=== PATIENT | male | born 2000 | race Caucasian/White ===

== ENCOUNTER 2018-03-07 17:17 | Emergency (ER) | payer OTHER ==
--- NOTE | 2018-03-07 17:36 | EDPHY ---
H & P Stated Complaint: L SIDED CP ALL DAY/DENIES DRUG USE - Personal History Current Tetanus Diphtheria and Acellular Pertussis (TDAP): Yes - Medical/Surgical History Hx Asthma: No Hx Chronic Respiratory Disease: No Hx Diabetes: No Hx Cardiac Disease: No Hx Renal Disease: No Hx Cirrhosis: No Hx Alcoholism: No Hx HIV/AIDS: No Hx Splenectomy or Spleen Trauma: No Other PMH: EOE - Social History Smoking Status: Never smoked Time Seen by Provider: 03/07/18 17:25 HPI/ROS: CHIEF COMPLAINT: Left-sided chest pain since waking this morning HISTORY OF PRESENT ILLNESS: 17-year-old male generally healthy with complaining of left-sided chest pain present since waking this morning. No trauma history. No alcohol or drug use. No cocaine use. Pain is described as nonpleuritic, nonradiating. Not reproducible with palpation. No syncope or near syncope. No diaphoresis. No nausea. PRIMARY CARE PROVIDER: REVIEW OF SYSTEMS: 10 systems reviewed and negative with the exception of the elements mentioned in the history of present illness PAST MEDICAL & SURGICAL HISTORY: eosinophilic esophagitis history, arm daily PPI therapy. No connective tissue disorder history. SOCIAL HISTORY: Positive for alcohol use last evening. Nonsmoker. No cocaine use. No drug use. FAMILY HISTORY: No family history of premature coronary artery disease, sudden unexplained or coagulopathic disorder PHYSICAL EXAM (Prior to examination, patient consented to physical exam, hands were washed and my usual and customary physical exam procedures followed) 1) GENERAL: Well-developed, well-nourished, alert and oriented. Appears to be in no acute distress. 2) HEAD: Normocephalic, atraumatic 3) HEENT: Pupils equal, round, reactive to light bilaterally. Sclera anicteric. Nasopharynx, oropharynx, clear, no lesions. Moist Mucous membranes. 4) NECK: Full range of motion, no meningeal signs. No carotid bruit. No jvd 5) LUNGS: Clear auscultation bilaterally, no wheezes, no rhonchi, no retractions. 6) HEART: Regular rate and rhythm, no murmur, no heave, no gallop. 7) ABDOMEN: No guarding, no rebound, no focal tenderness, negative McBurney's, negative Lopes's, negative Rovsing's, negative peritoneal sign, 8) MUSCULOSKELETAL: Moving all extremities, no focal areas of tenderness, no obvious trauma. No peripheral edema or discoloration. Negative Homans no palpable cord 9) BACK: No CVA tenderness, no midline vertebral tenderness, no fluctuance, no step-off, no obvious trauma, no visual or palpable abnormality. 10) SKIN: No rash, no petechiae. 11) Psychiatric: Patient is oriented X 3, there is no agitation. DIFFERENTIAL DIAGNOSIS: In no particular order, including but not limited to myocardial ischemia, esophageal/gi pathology, pulmonary embolus, chest wall pain , pleural inflammation and pulmonary infectious causes. (Jeff Lezama) Constitutional: Initial Vital Signs Temperature (C) 36.6 C 03/07/18 17:21 Heart Rate 81 03/07/18 17:21 Respiratory Rate 18 03/07/18 17:21 Blood Pressure 146/98 H 03/07/18 17:21 O2 Sat (%) 96 03/07/18 17:21 O2 Delivery Mode Room Air Allergies/Adverse Reactions: No Known Allergies Allergy (Unverified 03/07/18 17:19) Home Medications: Medication Instructions Recorded MINOCYCLINE HCL 03/07/18 Ranitidine HCl [Zantac] 150 mg PO BID #30 tablet 03/07/18 Medical Decision Making - Diagnostics Imaging Results: Imaging Impressions Chest X-Ray 03/07/18 17:27 IMPRESSION: Normal chest x-ray. Images reviewed myself (Jeff Lezama) ED Course/Re-evaluation: Re-evaluation with serial exams. Discussed his negative chest x-ray showing no pneumothorax or hemothorax no infiltrate. Doubt pulmonary embolus, negative perc score. Low cardiac/NM risk. We discussed his negative chest x-ray and his EKG. Given his history of eosinophilic esophagitis and positive alcohol use last evening , we discussed possibility of his possible esophageal/GI pathology. Given GI cocktail with re-evaluation, notes improvement symptoms. At this time I think that other pathologies such as PE, aortic dissection less than likely this patient. I do not think that further imaging indicated at this time. However should he develops new or worsening symptoms recommend he return to the ER immediately for re-evaluation. He feels comfortable with this plan. All questions and concerns addressed by myself. My usual and customary discharge precautions and instructions provided. I saw this patient independently based on established practice protocols. Care of patient under supervision of secondary supervising physician Dr Lamb with whom I discussed case. (Jeff Lezama) - Data Points Medications Given: Discontinued Medications Al Hydroxide/Mg Hydroxide (Maalox Susp) 30 ml PO ONCE ONE Stop: 03/07/18 18:17 Last Admin: 03/07/18 18:19 Dose: 30 ml Hyoscyamine Sulfate (Levsin, Hyomax-Sl) 0.25 mg PO ONCE ONE Stop: 03/07/18 18:17 Last Admin: 03/07/18 18:19 Dose: 0.25 mg Lidocaine (Lidocaine 2% Viscous) 15 ml PO ONCE ONE Stop: 03/07/18 18:17 Last Admin: 03/07/18 18:19 Dose: 15 ml Departure - Departure Disposition: Home, Routine, Self-Care Clinical Impression: Chest pain Qualifiers: Chest pain type: other chest pain Qualified Code(s): R07.89 - Other chest pain Condition: Good Instructions: Chest Pain (ED) Additional Instructions: Seek medical attention if you develop new or worsening chest pain, if you develop new or worsening shortness of breath, or any other symptoms that concern you. Referrals: [facility],. [Clinic] - 1-2 days without fail Prescriptions: Ranitidine HCl [Zantac] 150 mg PO BID #30 tablet
[2018-03-07] MEDS ORDERED: LIDOCAINE 2% VISCOUS 15 ML UDCUP PO ONE (18:16)
[2018-03-07] MEDS ORDERED: HYOSCYAMINE SULFATE 0.125 MG TAB PO ONE (18:16)
[2018-03-07] MEDS ORDERED: MAG HYDROX/AL HYDROX/SIMETH 30 ML UDCUP PO ONE (18:16)
--- NOTE | 2018-03-07 18:22 | CPEKG ---
Test Reason : OPEN Blood Pressure : / mmHG Vent. Rate : 070 BPM Atrial Rate : 070 BPM P-R Int : 163 ms QRS Dur : 100 ms QT Int : 439 ms P-R-T Axes : 023 -44 044 degrees QTc Int : 474 ms Sinus arrhythmia Confirmed by Tyler Lamb ([id number]) on 03/07/2018 6:21:42 PM Referred By: Confirmed By:Tyler Lamb
[2018-03-07 18:47] VITALS: BP 114/69
== END 2018-03-07 18:47 | disposition home or self-care (01) ==
DX: R07.89 Other chest pain (principal)